=== PATIENT | female | born 1980 | race Caucasian/White ===

== ENCOUNTER 2016-12-09 16:58 | Emergency (ER) | payer OTHER ==
[2016-12-09 17:17] VITALS: BP 125/78; PULSE 82; TEMP 98.8; BMI 38.9
[2016-12-09] MEDS ORDERED: diazePAM 5 MG TABLET PO ONE (19:14)
[2016-12-09] MEDS ORDERED: KETOROLAC TROMETHAMINE 60 MG/2 ML VIAL IM ONE (19:14)
[2016-12-09 19:44] LABS: URINE APPEARANCE CLEAR; URINE BILIRUBIN NEGATIVE (NEGATIVE); URINE BLOOD NEGATIVE (NEGATIVE); URINE COLOR LTYELLOW; URINE GLUCOSE (UA) NEGATIVE (NEGATIVE); URINE KETONE NEGATIVE (NEGATIVE); URINE LEUK ESTERASE NEGATIVE (NEGATIVE); URINE NITRITE NEGATIVE (NEGATIVE); URINE PROTEIN NEGATIVE (NEGATIVE); URINE UROBILINOGEN NEGATIVE E.U./dl (0.2-1.0)
[2016-12-09] MEDS ORDERED: KETOROLAC TROMETHAMINE 60 MG/2 ML VIAL ONE (19:54)
[2016-12-09] MEDS ORDERED: diazePAM 5 MG TABLET ONE (19:55)
--- NOTE | 2016-12-09 20:49 | PDOC ---
History of Present Illness - General Chief Complaint: Pain Stated Complaint: BACK PAIN Time Seen by Provider: 12/09/16 19:05 History Source: Patient Exam Limitations: No Limitations - History of Present Illness Initial Comments: 12/09/16 20:44 CC right lower back pain x 10 days; long hx of the same Occurred: reports: last week Severity: reports: mild Pain Location: reports: back Past History - Past Medical History Allergies/Adverse Reactions: Allergies Allergy/AdvReac Type Severity Reaction Status Date / Time Penicillins Allergy Verified 12/09/16 17:17 Home Medications: Ambulatory Orders Cyclobenzaprine HCl [Flexeril -] 5 mg PO TID #21 tablet 02/24/16 Suicide Attempt (Hx): No - Surgical History Abdominal Surgery: Yes (GASTRIC SLEEVE 2012) Appendectomy: Yes (2012) - Reproductive History Cervical CA: No Dysfunctional Uterine Bleeding: No Ectopic : No Endometrial CA: No Polycystic Ovaries: No Tubal Ligation: No - Immunization History Immunization Up to Date: Yes - Psycho/Social/Smoking Cessation Hx Anxiety: No Suicidal Ideation: No Smoking History: Never smoked Have you smoked in the past 12 months: Yes Number of Cigarettes Smoked Daily: 10 Information on smoking cessation initiated: No 'Breaking Loose' booklet given: 06/08/14 Hx Alcohol Use: No Drug/Substance Use Hx: No Substance Use Type: None Trauma Specific PMHX - Complaint Specific PMHX Arthritis: No Back Injury: No Neck Injury: No Hx Sacro Iliac Joint Dysfunction: No Review of Systems - Review of Systems Constitutional: No: Chills, Fever, Malaise HEENTM: No: Symptoms Reported Respiratory: No: Symptoms reported, Cough Cardiac (ROS): No: Symptoms Reported ABD/GI: No: Symptoms Reported : No: Symptoms Reported, Burning, Dysuria, Discharge, Hematuria, Incontinence Musculoskeletal: Yes: Back Pain. No: Neck Pain Integumentary: No: Bruising *Physical Exam - Vital Signs Last Vital Signs Temp Pulse Resp BP Pulse Ox 98.8 F 82 18 125/78 99 12/09/16 17:15 12/09/16 17:15 12/09/16 17:15 12/09/16 17:15 12/09/16 17:15 - Physical Exam General Appearance: Yes: Appropriately Dressed. No: Apparent Distress HEENT: negative: TMs Normal, Pharynx Normal Neck: negative: Rigid, Tender lateral, Tender midline Respiratory/Chest: positive: Lungs Clear. negative: Chest Tender Gastrointestinal/Abdominal: positive: Normal Bowel Sounds, Soft. negative: Tender, Organomegaly, Pulsatile Mass Rectal Exam: positive: deferred Musculoskeletal: positive: Other (tender right posterior flank) ED Treatment Course - ADDITIONAL ORDERS Additional order review: Laboratory Results 12/09/16 19:30 Urine Color Ltyellow Urine Appearance Clear Urine pH 5.0 D Ur Specific Kountze 1.027 Urine Protein Negative Urine Glucose (UA) Negative Urine Ketones Negative Urine Blood Negative Urine Nitrite Negative Urine Bilirubin Negative Urine Urobilinogen Negative Ur Leukocyte Esterase Negative Urine HCG, Qual Negative - Medications Given in the ED: ED Medications Discontinued Medications Generic Name Dose Route Start Last Admin Trade Name Andrzejq PRN Reason Stop Dose Admin Diazepam 5 mg 12/09/16 19:14 12/09/16 20:05 Valium - PO 12/09/16 19:15 5 mg ONCE ONE Administration Ketorolac Tromethamine 60 mg 12/09/16 19:14 12/09/16 20:05 Toradol Injection - IM 12/09/16 19:15 60 mg ONCE ONE Administration Medical Decision Making - Medical Decision Making 12/09/16 20:46 tender to area of right flank; ua, U preg negative; feeling much better post valium and toradol *DC/Admit/Observation/Transfer Diagnosis at time of Disposition: Back pain Qualifiers: Back pain location: low back pain Chronicity: acute Back pain laterality: right Sciatica presence: unspecified whether sciatica present Qualified Code(s) : M54.5 - Low back pain - Discharge Dispostion Disposition: HOME Condition at time of disposition: Stable Admit: No - Patient Instructions Additional Instructions: please see local MD next week; continue meds used at home - Post Discharge Activity Work/School Note: Back to Work
== END 2016-12-09 21:01 | disposition home or self-care (01) ==
LOC: JERFT 16:58
PROC: 3E0233Z Introduction of Anti-inflammatory into Muscle, Percutaneous Approach (ICD-10-PCS; principal; 2016-12-09)
DX: M54.5 Low back pain (principal)
CPT/HCPCS: 81003; 84703; 99281-25

== ENCOUNTER 2017-02-28 00:52 | Emergency (ER) | payer OTHER ==
[2017-02-28 01:17] VITALS: BP 108/74; PULSE 71; TEMP 98.1; BMI 38.0
--- NOTE | 2017-02-28 01:41 | PDOC ---
History of Present Illness - General Chief Complaint: Pain Stated Complaint: BACK PAIN Time Seen by Provider: 02/28/17 01:04 History Source: Patient Exam Limitations: No Limitations - History of Present Illness Initial Comments: CHIEF COMPLAINT: 36 y/o afebrile female with PMH chronic back pain and anxiety c/o back pain. HISTORY OF PRESENT ILLNESS: Pt states she was standing in an awkward position yesterday while baking and has had worsened back pain ever since. She took tylenol and robaxin this evening with little relief. The patient admits the pain is worse with certain movements and feels like a pulling. She denies trauma to back, fall, f/c, n/v/d, cough, CP, SOB, abd pain, hematuria, dysuria, numbness/tingling in extremities. Vital signs on arrival are within normal limits. REVIEW OF SYSTEMS: GENERAL/CONSTITUTIONAL: No fever/chills. No weakness. No weight change. HEAD, EYES, EARS, NOSE AND THROAT: No change in vision. No ear pain or discharge. No sore throat. CARDIOVASCULAR: No chest pain or shortness of breath. RESPIRATORY: No cough, wheezing, or hemoptysis. GASTROINTESTINAL: No abd pain, nausea, vomiting, diarrhea. GENITOURINARY: No dysuria, frequency, or change in urination. MUSCULOSKELETAL: No joint or muscle swelling or pain. No neck pain. +back pain. SKIN: No rash or easy bruising. NEUROLOGIC: No headache, vertigo, loss of consciousness, or loss of sensation. PHYSICAL EXAM: GENERAL: The patient is awake, alert, and fully oriented, in no acute distress. She is morbidly obese and ambulatory with normal gait. HEAD: Normal with no signs of trauma. ENT: Pupils equal, round and reactive to light, extraocular movements intact, sclera anicteric, conjunctiva clear. Neck supple. LUNGS: Clear to auscultation bilaterally. Normal excursion. No respiratory distress or use of accessory muscles. CV: RRR, S1/S2, no MRG. Cap refill < 2 sec. ABDOMEN: Soft, non-distended, non-tender even to deep palpation, no hepatomegaly or splenomegaly, no masses. BACK: No midline thoracic or lumbar TTP, step offs or crepitus. Pain reproduced with palpation of right thoracic and lumbar paravertebral muscles, with worst pain at L1-L2 region. Full flexion, extension and lateral movements of lumbar spine. EXTREMITIES: Normal range of motion, no edema. NEUROLOGICAL: Normal speech, normal gait. CN II-XII grossly intact. PSYCH: Normal mood, normal affect. SKIN: Warm, dry, normal turgor, no rashes or lesions noted. Past History - Past Medical History Allergies/Adverse Reactions: Allergies Allergy/AdvReac Type Severity Reaction Status Date / Time Penicillins Allergy Verified 02/28/17 01:06 Home Medications: Ambulatory Orders NK [No Known Home Medication] 02/28/17 Psychiatric Problems: Yes (Anxiety) Suicide Attempt (Hx): No - Surgical History Abdominal Surgery: Yes (Gastric sleeve 2012) Appendectomy: Yes (2012) - Reproductive History Cervical CA: No Dysfunctional Uterine Bleeding: No Ectopic : No Endometrial CA: No Polycystic Ovaries: No Tubal Ligation: No - Immunization History Immunization Up to Date: Yes - Psycho/Social/Smoking Cessation Hx Anxiety: No Suicidal Ideation: No Smoking History: Never smoked Have you smoked in the past 12 months: No Number of Cigarettes Smoked Daily: 10 Information on smoking cessation initiated: No 'Breaking Loose' booklet given: 06/08/14 Hx Alcohol Use: No Drug/Substance Use Hx: No Substance Use Type: None Trauma Specific PMHX - Complaint Specific PMHX Arthritis: No Back Injury: No Neck Injury: No Hx Sacro Iliac Joint Dysfunction: No *Physical Exam - Vital Signs Last Vital Signs Temp Pulse Resp BP Pulse Ox 98.1 F 71 19 108/74 100 02/28/17 01:06 02/28/17 01:06 02/28/17 01:06 02/28/17 01:06 02/28/17 01:06 Medical Decision Making - Medical Decision Making A/P: 36 y/o female with musculoskeletal back pain. Plan is as follows: 1. hcg hcg - negative 2. IM toradol The patient states she feels much better after toradol and wants to go home. Will discharge to home with instructions to take Motrin and Robaxin at home 3 times per day for back pain, apply heating pad and stretch. Suggested she call her doctor in the morning and return to the ER with any worsening or concerning symptoms. The patient verbalizes understanding of all instructions, has no further questions and is awaiting discharge. *DC/Admit/Observation/Transfer Diagnosis at time of Disposition: Musculoskeletal back pain - Discharge Dispostion Disposition: HOME Condition at time of disposition: Improved - Referrals Referrals: Anika Woo MD [Primary Care Provider] - Call tomorrow - Patient Instructions Printed Discharge Instructions: DI for Low Back Pain, DI for Musculoskeletal Pain Additional Instructions: Discharge Instructions: -Take Motrin with Robaxin 3 times per day with food for back pain -Apply heating pad to the area -Call Dr. Woo in the morning to schedule follow up appointment -Return to the ER with any worsening or concerning symptoms
[2017-02-28] MEDS ORDERED: KETOROLAC TROMETHAMINE 60 MG/2 ML VIAL IM ONE (02:57)
[2017-02-28] MEDS ORDERED: KETOROLAC TROMETHAMINE 60 MG/2 ML VIAL ONE (03:09)
--- NOTE | 2017-02-28 04:13 | PDOC ---
*Physical Exam - Vital Signs Last Vital Signs Temp Pulse Resp BP Pulse Ox 98.1 F 71 19 108/74 100 02/28/17 01:06 02/28/17 01:06 02/28/17 01:06 02/28/17 01:06 02/28/17 01:06 ED Treatment Course - ADDITIONAL ORDERS Additional order review: Laboratory Results 02/28/17 02:27 Urine HCG, Qual Negative - Medications Given in the ED: ED Medications Discontinued Medications Generic Name Dose Route Start Last Admin Trade Name Chrissie PRN Reason Stop Dose Admin Ketorolac Tromethamine 60 mg 02/28/17 02:57 02/28/17 03:13 Toradol Injection - IM 02/28/17 02:58 60 mg ONCE ONE Administration Medical Decision Making - Medical Decision Making 02/28/17 04:13 agree with care from MOISE Edmond *DC/Admit/Observation/Transfer Diagnosis at time of Disposition: Musculoskeletal back pain - Discharge Dispostion Condition at time of disposition: Improved - Referrals Referrals: Anika Woo MD [Primary Care Provider] - Call tomorrow - Patient Instructions Printed Discharge Instructions: DI for Low Back Pain, DI for Musculoskeletal Pain Additional Instructions: Discharge Instructions: -Take Motrin with Robaxin 3 times per day with food for back pain -Apply heating pad to the area -Call Dr. Woo in the morning to schedule follow up appointment -Return to the ER with any worsening or concerning symptoms - Post Discharge Activity
== END 2017-02-28 07:00 | disposition home or self-care (01) ==
LOC: JER 00:52
PROC: 3E0233Z Introduction of Anti-inflammatory into Muscle, Percutaneous Approach (ICD-10-PCS; principal; 2017-02-28)
DX: M54.5 Low back pain (principal); G89.29 Other chronic pain; F41.9 Anxiety disorder, unspecified; X50.1XXA Overexertion from prolonged static or awkward postures, initial encounter; Y93.G3 Activity, cooking and baking; Y92.030 Kitchen in apartment as the place of occurrence of the external cause; Y99.8 Other external cause status
CPT/HCPCS: 84703; 99282-25

== ENCOUNTER 2017-04-13 13:51 | Emergency (ER) | payer OTHER ==
[2017-04-13 14:05] VITALS: BP 117/73; BMI 38.0
[2017-04-13] MEDS ORDERED: DEXAMETHASONE LIQUID 0.5 MG/5 ML 240 ML BULK BOTTLE PO ONE (14:37)
[2017-04-13] MEDS ORDERED: DEXAMETHASONE SOD PHOSPHATE 10 MG/1 ML VIAL ONE (14:38)
--- NOTE | 2017-04-13 14:49 | PDOC ---
History of Present Illness - General Chief Complaint: Sore Throat Stated Complaint: SORE THROAT Time Seen by Provider: 04/13/17 14:32 History Source: Patient Exam Limitations: No Limitations - History of Present Illness Initial Comments: 04/13/17 14:38 Patient is a 36-year-old female, no significant medical history currently on no medication woke up today with fever and sore throat and dysphagia. Denies any chest pain or shortness of breath. Past Medical History: Denies. Allergies: No known allergies Medications: None Family History: Non-contributory Social History: Denies smoking, alcohol use, or IVDU Review of Systems GENERAL/CONSTITUTIONAL: Fever. No weakness. No weight change. HEAD, EYES, EARS, NOSE AND THROAT: No change in vision. No ear pain or discharge. Sore Throat and dysphasia. CARDIOVASCULAR: No chest pain or shortness of breath. RESPIRATORY: No cough, wheezing, or hemoptysis. GASTROINTESTINAL: No nausea, vomiting, diarrhea or constipation. No rectal bleeding. GENITOURINARY: No dysuria, frequency, or change in urination. MUSCULOSKELETAL: No joint or muscle swelling or pain. No neck or back pain. SKIN AND BREASTS: No rash or easy bruising. NEUROLOGIC: No headache, vertigo, loss of consciousness, or loss of sensation. PSYCHIATRIC: No depression or anxiety. ENDOCRINE: No increased thirst. No abnormal weight change. HEMATOLOGIC/LYMPHATIC: No anemia, easy bleeding, or history of blood clots. ALLERGIC/IMMUNOLOGIC: No hives or skin allergy. No latex allergy. Physical Exam: GENERAL: The patient is awake, alert, and fully oriented, in no acute distress. EYES: Pupils equal, round and reactive to light, extraocular movements intact, sclera anicteric, conjunctiva clear. ENT: Ears normal, nares patent, bilateral tonsillar edema with exudates. Moist mucous membranes. No uvula deviation NECK: Normal range of motion, supple without lymphadenopathy, JVD, or masses. LUNGS: Breath sounds equal, clear to auscultation bilaterally. No wheezes, and no crackles. HEART: Regular rate and rhythm, normal S1 and S2 without murmur, rub or gallop. ABDOMEN: Soft, nontender, normoactive bowel sounds. No guarding, no rebound. No masses. No bruising or abrasions MUSCULOSKELETAL: Normal range of motion, no edema. No clubbing or cyanosis. No cords, erythema, or tenderness. No CVA Tenderness with fist. NEUROLOGICAL: Cranial nerves II through XII grossly intact. Normal speech, normal gait. SKIN: Warm, Dry, normal turgor, no rashes or lesions noted. Past History - Past Medical History Allergies/Adverse Reactions: Allergies Allergy/AdvReac Type Severity Reaction Status Date / Time Penicillins Allergy Verified 04/13/17 14:03 Home Medications: Ambulatory Orders Azithromycin [Zithromax 250mg Tablets -] 250 mg PO DAILY #4 tablet 04/13/17 Ibuprofen [Advil -] 400 mg PO QID 04/13/17 Ibuprofen [Motrin -] 600 mg PO QID #28 tablet 04/13/17 Psychiatric Problems: Yes (Anxiety) Suicide Attempt (Hx): No - Surgical History Abdominal Surgery: Yes (GASTRIC SLEEVE 2012) Appendectomy: Yes (2012) - Reproductive History Cervical CA: No Dysfunctional Uterine Bleeding: No Ectopic : No Endometrial CA: No Polycystic Ovaries: No Tubal Ligation: No - Immunization History Immunization Up to Date: Yes - Psycho/Social/Smoking Cessation Hx Anxiety: No Suicidal Ideation: No Smoking History: Never smoked Have you smoked in the past 12 months: No Number of Cigarettes Smoked Daily: 10 Information on smoking cessation initiated: No 'Breaking Loose' booklet given: 06/08/14 Hx Alcohol Use: No Drug/Substance Use Hx: No Substance Use Type: None *Physical Exam - Vital Signs Last Vital Signs Temp Pulse Resp BP Pulse Ox 100.0 F H 110 H 18 117/73 04/13/17 14:03 04/13/17 14:03 04/13/17 14:03 04/13/17 14:03 Medical Decision Making - Medical Decision Making 04/13/17 14:42 A/P: Patient here for evaluation of sore throat and fever, patient with clinical signs of bilateral tonsillitis, pharyngitis rapid strep sent. Patient states that she didn't feel good and walked out of the emergency department became diaphoretic and returned by security. Patient states she started to feel dizzy and wanted to get some air. Explained to patient that she cannot leave the emergency department she will be considered eloped. She verbalized understanding, will give: Decadron 10 mg by mouth. Toradol 30 mg Saline 1 L bolus saline lock. 04/13/17 14:51 Awaiting rapid strep 08/06/17 15:24 Patient with positive strep, will start patient on azithromycin allergy to penicillin first dose given in emergency department patient discharged on azithromycin 250 mg by mouth every day for 4 days. Recommend follow-up with PMD in 2 days if symptoms persist I discussed the physical exam findings, ancillary test results and final diagnoses with the patient. I answered all of the patient's questions. The patient was satisfied with the care received and felt comfortable with the discharge plan and treatment plan. The patient will call to arrange follow-up and will return to the Emergency Department with any new, persistent or worsening symptoms. 04/13/17 15:45 *DC/Admit/Observation/Transfer Diagnosis at time of Disposition: Strep pharyngitis - Discharge Dispostion Disposition: HOME Condition at time of disposition: Good Admit: No - Prescriptions Prescriptions: Ibuprofen [Motrin -] 600 mg PO QID #28 tablet Azithromycin [Zithromax 250mg Tablets -] 250 mg PO DAILY #4 tablet - Referrals Referrals: Anika Woo MD [Primary Care Provider] - - Patient Instructions Printed Discharge Instructions: DI for Pharyngitis/Tonsillopharyngitis -- Adult Additional Instructions: 1. Increase fluid. 2. Pedialyte or Gatorade. 3. Please change toothbrush within 3 days of starting antibiotics. 4. Warm saltwater gargles. 5. Please follow up with PMD in 3 days if symptoms not resolving. 6. Please return to the ER unable to drink or eat, increased fever or other concerns - Post Discharge Activity Work/School Note: Back to Work
[2017-04-13] MEDS ORDERED: SODIUM CHLORIDE 0.9% 1000 ML INFUS.BAG IV ONE (14:50)
[2017-04-13] MEDS ORDERED: KETOROLAC TROMETHAMINE 60 MG/2 ML VIAL IVPB ONE (14:50)
[2017-04-13] MEDS ORDERED: KETOROLAC TROMETHAMINE 30 MG/1 ML VIAL ONE (15:00)
[2017-04-13] MEDS ORDERED: AZITHROMYCIN 250 MG TABLET (FP) PO ONE (15:23)
[2017-04-13] MEDS ORDERED: AZITHROMYCIN 250 MG TABLET (FP) ONE (15:24)
[2017-04-13 16:19] VITALS: PULSE 95; TEMP 99.5
== END 2017-04-13 16:19 | disposition home or self-care (01) ==
LOC: JERFT 13:51 → JER 13:51 → JERFT 16:19
PROC: 3E0333Z Introduction of Anti-inflammatory into Peripheral Vein, Percutaneous Approach (ICD-10-PCS; principal; 2017-04-13)
PROC: 3E0337Z Introduction of Electrolytic and Water Balance Substance into Peripheral Vein, Percutaneous Approach (ICD-10-PCS; 2017-04-13)
DX: J02.0 Streptococcal pharyngitis (principal); F41.9 Anxiety disorder, unspecified; Z98.84 Bariatric surgery status; F17.210 Nicotine dependence, cigarettes, uncomplicated
CPT/HCPCS: 87070; 87077; 87430; 99281-25

== ENCOUNTER 2017-04-21 08:44 | Emergency (ER) | payer OTHER ==
[2017-04-21 08:51] VITALS: BP 115/70; PULSE 90; TEMP 98.6; BMI 40.3
[2017-04-21] MEDS ORDERED: BACITRACIN 15 GM TUBE TOPICAL OINTMENT TP ONE (09:30)
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
[2017-04-21] MEDS ORDERED: BACITRACIN 15 GM TUBE TOPICAL OINTMENT ONE (09:33)
== END 2017-04-21 09:48 | disposition home or self-care (01) ==
LOC: JERFT 08:44
DX: T21.11XA Burn of first degree of chest wall, initial encounter (principal); T31.0 Burns involving less than 10% of body surface; X17.XXXA Contact with hot engines, machinery and tools, initial encounter; Y93.89 Activity, other specified; Y92.9 Unspecified place or not applicable; F17.210 Nicotine dependence, cigarettes, uncomplicated; Z98.84 Bariatric surgery status
CPT/HCPCS: 99281-25

== ENCOUNTER 2017-08-30 13:52 | Emergency (ER) | payer OTHER ==
[2017-08-30 14:22] VITALS: BP 127/76; PULSE 80; TEMP 98.1; BMI 41.0
[2017-08-30] MEDS ORDERED: METOCLOPRAMIDE HCL 10 MG TABLET (FP) PO ONE (14:58)
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
[2017-08-30] MEDS ORDERED: METOCLOPRAMIDE HCL INJECTION 10 MG/2 ML VIAL ONE (15:10)
[2017-08-30] MEDS ORDERED: ACETAMINOPHEN 325 MG TABLET (FP) PO ONE (15:15)
[2017-08-30] MEDS ORDERED: ACETAMINOPHEN 325 MG TABLET (FP) ONE (15:24)
--- NOTE | 2017-08-30 15:47 | PDOC ---
History of Present Illness - General Chief Complaint: Lightheaded Stated Complaint: HEADACHE, HEAD CONTUSION X2 Time Seen by Provider: 08/30/17 14:27 History Source: Patient Exam Limitations: No Limitations - History of Present Illness Initial Comments: 08/30/17 15:36 The patient is a 36F with no PMH who presents to the ED with lightheadedness. The patient states that she hit her head on the door frame on Friday and then hit her head on her car door on Friday. She states that she has felt nauseous since Friday and has not been able to keep food down. She has vomited twice since. She denies any CP, SOB, changes in vision, numbness, tingling, or weakness. Past History - Past Medical History Allergies/Adverse Reactions: Allergies Allergy/AdvReac Type Severity Reaction Status Date / Time Penicillins Allergy Verified 08/30/17 14:21 Home Medications: Ambulatory Orders Hydrocortisone 1% Cream [Hytone 1% Cream -] 1 applic TP BID #1 tube 04/21/17 COPD: No Psychiatric Problems: Yes (Anxiety) - Surgical History Abdominal Surgery: Yes (GASTRIC SLEEVE 2012) Appendectomy: Yes (2012) - Reproductive History Cervical CA: No Dysfunctional Uterine Bleeding: No Ectopic : No Endometrial CA: No Polycystic Ovaries: No Tubal Ligation: No - Immunization History Immunization Up to Date: Yes - Suicide/Smoking/Psychosocial Hx Smoking History: Never smoked Have you smoked in the past 12 months: No Number of Cigarettes Smoked Daily: 0 Information on smoking cessation initiated: No 'Breaking Loose' booklet given: 06/08/14 Hx Alcohol Use: No Drug/Substance Use Hx: No Substance Use Type: None Review of Systems - Review of Systems Able to Perform ROS?: Yes Comments:: 08/30/17 15:47 GENERAL/CONSTITUTIONAL: No fever or chills. No weakness. HEAD, EYES, EARS, NOSE AND THROAT: Positive for head trauma x 2. No change in vision. No ear pain or discharge. No sore throat. GASTROINTESTINAL: Positive for nausea. No vomiting, diarrhea, constipation, or abdominal pain. GENITOURINARY: No dysuria, frequency, hematuria, or change in urination. CARDIOVASCULAR: No chest pain, palpitations, or lightheadedness. RESPIRATORY: No cough, wheezing, shortness of breath, or hemoptysis. MUSCULOSKELETAL: No joint or muscle swelling or pain. No neck or back pain. SKIN: No rash or lesions. NEUROLOGIC: No headache, numbness, tingling, weakness, loss of consciousness, or change in strength/sensation. ENDOCRINE: No increased thirst. No abnormal weight change. HEMATOLOGIC/LYMPHATIC: No anemia, easy bleeding, or history of blood clots. ALLERGIC/IMMUNOLOGIC: No hives or skin allergy. 08/30/17 15:47 Is the patient limited Luxembourger proficient: No *Physical Exam - Vital Signs Last Vital Signs Temp Pulse Resp BP Pulse Ox 98.1 F 80 18 127/76 99 08/30/17 14:19 08/30/17 14:19 08/30/17 14:19 08/30/17 14:19 08/30/17 14:19 - Physical Exam Comments: 08/30/17 15:48 GENERAL: Well developed, well nourished. Awake and alert. No acute distress. HEENT: Normocephalic, atraumatic. Hearing grossly normal. Moist mucous membranes. PERRLA, EOMI. NECK: Supple. Full ROM. No JVD. CARDIOVASCULAR: Regular rate and rhythm. No murmurs, rubs, or gallops. Distal pulses are 2+ and symmetric. PULMONARY: No evidence of respiratory distress. Lungs clear to auscultation bilaterally. No wheezing, rales or rhonchi. ABDOMINAL: Soft. Non-tender. Non-distended. No rebound or guarding. No organomegaly. Normoactive bowel sounds. GENITOURINARY: No CVA tenderness bilaterally. MUSCULOSKELETAL: Normal range of motion at all joints. No bony deformities or tenderness. EXTREMITIES: No cyanosis. No clubbing. No edema. No calf tenderness. SKIN: Warm and dry. Normal capillary refill. No rashes. No jaundice. NEUROLOGICAL: Alert, awake, appropriate. Cranial nerves 2-12 intact. No deficits to light touch and temperature in face, upper extremities and lower extremities. No motor deficits in the in face, upper extremities and lower extremities. Normoreflexic in the upper and lower extremities. Normal speech. Abnormal gait. PSYCHIATRIC: Cooperative. Good eye contact. Appropriate mood and affect. ED Treatment Course - RADIOLOGY Radiology Studies Ordered: Category Date Time Status HEAD CT WITHOUT CONTRAST [CT] Stat CT Scan 08/30/17 14:59 Ordered - Medications Given in the ED: ED Medications Discontinued Medications Generic Name Dose Route Start Last Admin Trade Name Chrissie PRN Reason Stop Dose Admin Acetaminophen 975 mg 08/30/17 15:15 08/30/17 15:23 Tylenol - PO 08/30/17 15:16 975 mg ONCE ONE Administration Metoclopramide HCl 10 mg 08/30/17 14:58 08/30/17 15:03 Reglan - PO 08/30/17 14:59 10 mg ONCE ONE Administration Medical Decision Making - Medical Decision Making 08/30/17 15:49 The patient is a 36F with no PMH who presents to the ED complaining of lightheadedness and nausea after 2 injuries to her head. CT head pending. Upreg negative. Patient was given reglan and fluids and states she feels better. Will reassess when CT is read. 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 Patient informed and is ready for d /c. *DC/Admit/Observation/Transfer Diagnosis at time of Disposition: Lightheaded - Discharge Dispostion Disposition: HOME Condition at time of disposition: Stable Admit: No - Referrals Referrals: Anika Woo MD [Primary Care Provider] - - Patient Instructions Printed Discharge Instructions: DI for Concussion Additional Instructions: Please return to the ER if symptoms persist, worsen, or new symptoms arise. Please follow up with your primary care physician in 2-3 days. Please return to the ER if you have any signs or symptoms of chest pain, shortness of breath, uncontrollable fever, chills, nausea, vomiting, numbness, tingling, or weakness in any part of your body, changes in vision, or slurred speech. - Post Discharge Activity
[2017-08-30 18:58] LABS: URINE APPEARANCE CLOUDY; URINE BILIRUBIN NEGATIVE (NEGATIVE); URINE BLOOD NEGATIVE (NEGATIVE); URINE COLOR YELLOW; URINE GLUCOSE (UA) NEGATIVE (NEGATIVE); URINE KETONE NEGATIVE (NEGATIVE); URINE LEUK ESTERASE NEGATIVE (NEGATIVE); URINE NITRITE NEGATIVE (NEGATIVE); URINE PROTEIN NEGATIVE (NEGATIVE); URINE UROBILINOGEN NEGATIVE mg/dL (0.2-1.0)
[2017-08-30 22:49] LABS: URINE LEUK ESTERASE Negative (NEGATIVE)
== END 2017-08-30 19:10 | disposition home or self-care (01) ==
LOC: JER 13:52
DX: S09.8XXA Other specified injuries of head, initial encounter (principal); W22.8XXA Striking against or struck by other objects, initial encounter; Y93.89 Activity, other specified; Y92.89 Other specified places as the place of occurrence of the external cause; Y99.8 Other external cause status
CPT/HCPCS: 70450-TC; 81003; 84703; 99281-25

== ENCOUNTER 2018-10-10 12:26 | Emergency (ER) | payer OTHER ==
[2018-10-10 12:36] VITALS: BP 133/81; PULSE 89; TEMP 99.1; BMI 33.5
--- NOTE | 2018-10-10 13:04 | PDOC ---
History of Present Illness - General Chief Complaint: Urinary Problem Stated Complaint: PAIN Time Seen by Provider: 10/10/18 12:55 History Source: Patient Exam Limitations: No Limitations Past History - Past Medical History Allergies/Adverse Reactions: Allergies Allergy/AdvReac Type Severity Reaction Status Date / Time Penicillins Allergy Verified 10/10/18 12:32 Home Medications: Ambulatory Orders Multivitamin [Multiple Vitamins] 1 each PO DAILY 10/10/18 Nitrofurantoin Monohyd/M-Cryst [Macrobid -] 100 mg PO BID #14 capsule 10/10/18 COPD: No Psychiatric Problems: Yes (Anxiety) - Surgical History Abdominal Surgery: Yes (GASTRIC SLEEVE 2012) Appendectomy: Yes (2012) - Reproductive History Cervical CA: No Dysfunctional Uterine Bleeding: No Ectopic : No Endometrial CA: No Polycystic Ovaries: No Tubal Ligation: No - Immunization History Immunization Up to Date: Yes - Suicide/Smoking/Psychosocial Hx Smoking History: Never smoked Have you smoked in the past 12 months: No Number of Cigarettes Smoked Daily: 0 'Breaking Loose' booklet given: 06/08/14 Hx Alcohol Use: No Drug/Substance Use Hx: No Substance Use Type: None *Physical Exam - Vital Signs Last Vital Signs Temp Pulse Resp BP Pulse Ox 99.1 F 89 18 133/81 99 10/10/18 12:35 10/10/18 12:35 10/10/18 12:35 10/10/18 12:35 10/10/18 12:35 Moderate Sedation - Procedure Monitoring Vital Signs: Procedure Monitoring Vital Signs Temperature 99.1 F 10/10/18 12:35 Pulse Rate 89 10/10/18 12:35 Respiratory Rate 18 10/10/18 12:35 Blood Pressure 133/81 10/10/18 12:35 O2 Sat by Pulse Oximetry (%) 99 10/10/18 12:35 Medical Decision Making - Medical Decision Making 37 y/o F with no sig pmh presents with urinary urgency, increased frequency and dysuria since 4 days ago. Denies fever, chills, sob, cp, abd pain, n/v, hematuria, unusual vaginal discharge. Probable UTI UA, UCx, UCG sent from triage 10/10/18 13:04 UA not significantly positive - 1+ leuks and few pyuria Given patient symptomatic, will treat 10/10/18 13:39 *DC/Admit/Observation/Transfer Diagnosis at time of Disposition: UTI (urinary tract infection) Qualifiers: Urinary tract infection type: acute cystitis Hematuria presence: without hematuria Qualified Code(s): N30.00 - Acute cystitis without hematuria - Discharge Dispostion Disposition: HOME Condition at time of disposition: Stable Decision to Admit order: No - Prescriptions Prescriptions: Nitrofurantoin Monohyd/M-Cryst [Macrobid -] 100 mg PO BID #14 capsule - Referrals Referrals: Anika Woo MD [Primary Care Provider] - 3 days - Patient Instructions Printed Discharge Instructions: DI for Urinary Tract Infection (UTI) Additional Instructions: Thank you for choosing [facility]. It was a pleasure taking care of you. You were started on an antibiotic, Macrobid, for urine infection Avoid drinking alcohol while taking this medication Drink at least 2 L of water daily. Return to the Emergency Department if your symptoms worsen or persist or other concerning symptoms. - Post Discharge Activity
[2018-10-10 13:11] LABS: HCG,QUALITATIVE URINE Negative
[2018-10-10 13:20] LABS: URINE APPEARANCE SLCLOUDY; URINE BILIRUBIN NEGATIVE (<2.0 mg/dL); URINE COLOR YELLOW; URINE GLUCOSE (UA) NEGATIVE (NEGATIVE); URINE KETONE NEGATIVE (NEGATIVE); URINE LEUK ESTERASE 1+ (NEGATIVE); URINE NITRITE NEGATIVE (NEGATIVE); URINE PROTEIN 1+ (NEGATIVE)
[2018-10-10 13:28] LABS: EPI CELLS MODERATE /HPF (FEW); URINE BACTERIA RARE /hpf (NONE SEEN)
[2018-10-10] MEDS ORDERED: NITROFURANTOIN MACROCRYSTAL 50 MG CAPSULE (FP) PO SCH (13:45)
[2018-10-10] MEDS ORDERED: NITROFURANTOIN MACROCRYSTAL 50 MG CAPSULE (FP) ONE (13:48)
== END 2018-10-10 13:55 | disposition home or self-care (01) ==
LOC: JERFT 12:26
DX: N30.00 Acute cystitis without hematuria (principal); B96.20 Unspecified Escherichia coli [E. coli] as the cause of diseases classified elsewhere
CPT/HCPCS: 81003; 81015; 84703; 87086; 87186; 99281-25

== ENCOUNTER 2018-11-22 12:18 | Emergency (ER) | payer OTHER ==
[2018-11-22 12:25] VITALS: BP 130/76; PULSE 88; TEMP 98.9; BMI 41.0
--- NOTE | 2018-11-22 12:43 | PDOC ---
History of Present Illness - General Chief Complaint: Redness To Affected Area Stated Complaint: RT LEG POSSIBLE INFECTION Time Seen by Provider: 11/22/18 12:28 History Source: Patient Exam Limitations: No Limitations (R lower leg redness and swelling X 3wks) - History of Present Illness Location: reports: extremities Associated Symptoms: reports: edema. denies: fever Past History - Travel Traveled outside of the country in the last 30 days: No Close contact w/someone who was outside of country & ill: No - Past Medical History Allergies/Adverse Reactions: Allergies Allergy/AdvReac Type Severity Reaction Status Date / Time Penicillins Allergy Verified 11/22/18 12:25 Home Medications: Ambulatory Orders Clindamycin [Cleocin -] 300 mg PO Q6HPO #28 capsule 11/22/18 Cyclobenzaprine HCl [Flexeril -] 10 mg PO TID 11/22/18 Ibuprofen [Advil -] 200 mg PO QID 11/22/18 COPD: No Psychiatric Problems: Yes (Anxiety) - Surgical History Abdominal Surgery: Yes (GASTRIC SLEEVE 2012) Appendectomy: Yes (2012) - Reproductive History Cervical CA: No Dysfunctional Uterine Bleeding: No Ectopic : No Endometrial CA: No Polycystic Ovaries: No Tubal Ligation: No - Immunization History Immunization Up to Date: Yes - Suicide/Smoking/Psychosocial Hx Smoking History: Never smoked Have you smoked in the past 12 months: No Number of Cigarettes Smoked Daily: 0 'Breaking Loose' booklet given: 06/08/14 Hx Alcohol Use: No Drug/Substance Use Hx: No Substance Use Type: None Review of Systems - Review of Systems Constitutional: No: Chills, Fever Musculoskeletal: Yes: Other (R lower leg redness--lateral aspect) Integumentary: Yes: Erythema. No: Pruritus, Rash *Physical Exam - Vital Signs Last Vital Signs Temp Pulse Resp BP Pulse Ox 98.9 F 88 18 130/76 99 11/22/18 12:21 11/22/18 12:21 11/22/18 12:21 11/22/18 12:21 11/22/18 12:21 - Physical Exam Respiratory/Chest: positive: Lungs Clear, Normal Breath Sounds Cardiovascular: positive: Regular Rhythm, Regular Rate, S1, S2 Extremity: positive: Swelling, Erythema, Other (R lateral lower lecm area of swelling with warmth). negative: Calf Tenderness Integumentary: positive: Erythema Neurologic: positive: campus rep II-XII NML intact, Fully Oriented, Alert (R lower leg : lateral leg swelling with warmth about 5cm in dimension, + ankle edema. neg homans sign) Moderate Sedation - Procedure Monitoring Vital Signs: Procedure Monitoring Vital Signs Temperature 98.9 F 11/22/18 12:21 Pulse Rate 88 11/22/18 12:21 Respiratory Rate 18 11/22/18 12:21 Blood Pressure 130/76 11/22/18 12:21 O2 Sat by Pulse Oximetry (%) 99 11/22/18 12:21 ED Treatment Course - RADIOLOGY Radiology Studies Ordered: Category Date Time Status DUPLEX VASCUL US-1 LEG [US] Stat Ultrasound 11/22/18 12:35 Ordered Medical Decision Making - Medical Decision Making 11/22/18 13:55 37y/o F with redness and lower leg swelling X 3wks, denies trauma, f/c or SOB, last tetanus >10yrs ago pt was seen by vascular doctor who recommended she come to ER to r/o DVT exam with superficial cellulites duplex ordered, neg for DVT Rx for clindamycin sent to pharmacy with return instructions area marked *DC/Admit/Observation/Transfer Diagnosis at time of Disposition: Cellulitis Qualifiers: Site of cellulitis: extremity Site of cellulitis of extremity: lower extremity Laterality: right Qualified Code(s): L03.115 - Cellulitis of right lower limb - Discharge Dispostion Disposition: HOME Condition at time of disposition: Stable Decision to Admit order: No - Prescriptions Prescriptions: Clindamycin [Cleocin -] 300 mg PO Q6HPO #28 capsule - Referrals Referrals: Anika Woo MD [Primary Care Provider] - - Patient Instructions Printed Discharge Instructions: DI for Cellulitis -- Adult Additional Instructions: Your sonogram for the leg was negative for blood clot today please take antibiotics as prescribed for leg infection return to the ER for wound check in 2-3 days Please return sooner if worsening redness above marked area, fever, chills - Post Discharge Activity
[2018-11-22] MEDS ORDERED: DIPHTH,PERTUSS(ACELL),TET 0.5 ML DISP.SYRIN IM ONE ×2 (13:54→14:03)
== END 2018-11-22 14:07 | disposition home or self-care (01) ==
LOC: JERFT 12:18
PROC: 3E0234Z Introduction of Serum, Toxoid and Vaccine into Muscle, Percutaneous Approach (ICD-10-PCS; principal; 2018-11-22)
DX: L03.115 Cellulitis of right lower limb (principal); F41.9 Anxiety disorder, unspecified; Z98.84 Bariatric surgery status
CPT/HCPCS: 90471; 90715; 93971-TC; 99281-25

== ENCOUNTER 2020-05-08 07:29 | Day surgery (SDC) | payer OTHER ==
[2020-05-01 18:11] VITALS: BMI 42.5
[2020-05-08] MEDS ORDERED: PROPOFOL 20 ML ONE ×2 (07:34)
[2020-05-08] MEDS ORDERED: LIDOCAINE HCL/PF 2% SDV 5ML VIAL ONE (07:34)
[2020-05-08 08:57] VITALS: TEMP 98.2
[2020-05-08 09:17] VITALS: BP 122/76; PULSE 78
--- NOTE | 2020-05-09 15:35 | PATH ---
Surgical Pathology Report Patient Name: DIMA DORSEY [facility]. Rec. #: [id number] /Age/Gender: 1980 (Age: 39) / F Account: [id number] Location: [facility] Taken: 05/08/2020 Received: 05/08/2020 Reported: 05/09/2020 Physicians: Deondre Dave M.D. Specimen(s) Received A: BIOPSY SECOND PORTION DUODENUM B: BIOPSY GASTRIC ANTRUM Clinical History GERD Postoperative diagnosis: Hiatal hernia status post gastric sleeve Final Diagnosis A. DUODENUM, SECOND PORTION, BIOPSY: DUODENAL MUCOSA WITHOUT SIGNIFICANT PATHOLOGIC FINDINGS. B. GASTRIC ANTRUM, BIOPSY: GASTRIC ANTRAL MUCOSA WITH MILD CHRONIC GASTRITIS. IMMUNOHISTOCHEMICAL STAIN FOR H. PYLORI IS NEGATIVE. Positive and negative controls (internal if applicable) show appropriate results. Electronically Signed Azra Garcia M.D. Gross Description A. Received in formalin, labeled "biopsy second portion of duodenum" is a ba, irregular portion of soft tissue measuring 0.3 cm. in greatest dimension. The specimen is submitted in toto in one cassette. B. Received in formalin, labeled "biopsy gastric antrum" is a ba, irregular portion of soft tissue measuring 0.3 cm. in greatest dimension. The specimen is submitted in toto in one cassette. 05/08/2020 [facility]05/08/2020
== END 2020-05-08 09:18 | disposition home or self-care (01) ==
LOC: FASU-ENDO 07:29
PROVIDERS: ATTEND Internal Medicine Gastroenterology
PROC: 0DB68ZX Excision of Stomach, Via Natural or Artificial Opening Endoscopic, Diagnostic (ICD-10-PCS; 2020-05-08)
PROC: 0DB98ZX Excision of Duodenum, Via Natural or Artificial Opening Endoscopic, Diagnostic (ICD-10-PCS; principal; 2020-05-08 08:38)
DX: Z01.818 Encounter for other preprocedural examination (principal); K29.50 Unspecified chronic gastritis without bleeding; K44.9 Diaphragmatic hernia without obstruction or gangrene; Z98.84 Bariatric surgery status; R12 Heartburn
CPT/HCPCS: 81025; 88305-TC; 88342-TC

== ENCOUNTER 2021-07-11 22:46 | Emergency (ER) | payer OTHER ==
[2021-07-11 22:53] VITALS: BP 124/82; PULSE 90; TEMP 97.7; BMI 41.6
[2021-07-12] MEDS ORDERED: DIPHTH,PERTUSS(ACELL),TET 0.5 ML DISP.SYRIN IM ONE (00:31)
== END 2021-07-12 01:46 | disposition home or self-care (01) ==
LOC: JER 22:46
PROC: 0JQ10ZZ Repair Face Subcutaneous Tissue and Fascia, Open Approach (ICD-10-PCS; principal; 2021-07-11)
PROC: 3E0234Z Introduction of Serum, Toxoid and Vaccine into Muscle, Percutaneous Approach (ICD-10-PCS; 2021-07-11)
DX: S01.81XA Laceration without foreign body of other part of head, initial encounter (principal); W22.8XXA Striking against or struck by other objects, initial encounter; Y92.9 Unspecified place or not applicable
CPT/HCPCS: 12001-25; 90471; 99284-25

== ENCOUNTER 2021-07-19 17:45 | Emergency (ER) | payer OTHER ==
[2021-07-19 17:58] VITALS: BP 124/85; PULSE 87; TEMP 97.9; BMI 41.5
== END 2021-07-19 18:33 | disposition home or self-care (01) ==
LOC: JER 17:45
DX: Z48.02 Encounter for removal of sutures (principal)
CPT/HCPCS: 99281-25

== ENCOUNTER 2021-07-25 18:11 | Emergency (ER) | payer OTHER ==
[2021-07-25 18:29] VITALS: TEMP 99.7; BMI 41.5
[2021-07-25] MEDS ORDERED: MAG HYDROX/AL HYDROX/SIMETH 30 ML UNIT-DOSE CUP PO ONE (19:01)
[2021-07-25] MEDS ORDERED: ACETAMINOPHEN 325 MG TABLET (FP) PO ONE (19:01)
[2021-07-25] MEDS ORDERED: FAMOTIDINE 10 MG TABLET PO ONE (19:01)
[2021-07-25] MEDS ORDERED: SUCRALFATE 1 GM TABLET (FP) PO ONE (19:01)
[2021-07-25] MEDS ORDERED: ACETAMINOPHEN 1000 MG/100 ML VIAL IVPB ONE (19:07)
[2021-07-25] MEDS ORDERED: FAMOTIDINE 10 MG TABLET ONE (19:39)
[2021-07-25] MEDS ORDERED: MAG HYDROX/AL HYDROX/SIMETH 30 ML UNIT-DOSE CUP ONE (19:40)
[2021-07-25] MEDS ORDERED: ACETAMINOPHEN INJECTION 100 ML IVPB ONE (19:40)
[2021-07-25] MEDS ORDERED: SUCRALFATE 1 GM TABLET (FP) ONE (19:40)
[2021-07-25 20:24] LABS: BASO % 0.3 % (0-2.0); EOS % 0.5 % (0-4.5); HEMATOCRIT 32.4 % (32.4-45.2); HEMOGLOBIN 10.4 GM/dL (10.7-15.3); LYMPH % 13.5 % (8-40); MCH 25.6 pg (25.7-33.7); MCHC 32.2 g/dl (32.0-36.0); MEAN CELL VOLUME 79.4 fl (80-96); MEAN PLT VOLUME 8.9 fl (7.5-11.1); MONO % 7.2 % (3.8-10.2); NEUT % 78.5 % (42.8-82.8); PLATELET COUNT 303 10^3/uL (134-434); RBC 4.08 M/mm3 (3.60-5.2); RDW 15.3 % (11.6-15.6); WHITE BLOOD COUNT 9.8 K/mm3 (4.0-10.0)
[2021-07-25 20:47] LABS: PH,URINE 5.5 (5.0-8.0); URINE APPEARANCE CLEAR; URINE BILIRUBIN NEGATIVE (NEGATIVE); URINE COLOR YELLOW; URINE GLUCOSE (UA) NEGATIVE (NEGATIVE); URINE KETONE NEGATIVE (NEGATIVE); URINE LEUK ESTERASE NEGATIVE (NEGATIVE); URINE NITRITE NEGATIVE (NEGATIVE); URINE PROTEIN TRACE (NEGATIVE); URINE UROBILINOGEN 0.2 mg/dL (0.2-1.0)
[2021-07-25 21:00] LABS: ALBUMIN 3.2 g/dl (3.4-5.0); BLOOD UREA NITROGEN 11.1 mg/dL (7-18); CALCIUM 8.7 mg/dL (8.5-10.1)
[2021-07-25 21:03] LABS: CREATININE 0.6 mg/dL (0.55-1.3)
[2021-07-25 21:04] LABS: TOT PROT 7.4 g/dl (6.4-8.2)
[2021-07-25 21:05] LABS: BILIRUBIN,TOTAL 0.2 mg/dL (0.2-1)
[2021-07-25] MEDS ORDERED: metroNIDAZOLE 500 MG TABLET PO ONE (23:27)
[2021-07-25] MEDS ORDERED: metroNIDAZOLE 250 MG TABLET ONE (23:38)
[2021-07-25 23:55] VITALS: BP 126/92; PULSE 87
== END 2021-07-25 23:55 | disposition home or self-care (01) ==
LOC: JER 18:11
PROC: 3E0333Z Introduction of Anti-inflammatory into Peripheral Vein, Percutaneous Approach (ICD-10-PCS; principal; 2021-07-25)
DX: K51.90 Ulcerative colitis, unspecified, without complications (principal); R10.9 Unspecified abdominal pain
CPT/HCPCS: 36415; 74177-TC; 76830-TC; 80053; 81003; 83690; 84703; 85025; 87086; 99285-25; C9803; J0131; Q9967; U0003; U0005

== ENCOUNTER 2022-09-24 10:07 | Emergency (ER) | payer OTHER ==
[2022-09-24 10:24] VITALS: BP 138/77; PULSE 100; RESP 20; TEMP 97.9; BMI 43.2
== END 2022-09-24 12:09 | disposition home or self-care (01) ==
LOC: JERFT 10:07 → JER 10:07 → JERFT 12:09
DX: B30.9 Viral conjunctivitis, unspecified (principal)
CPT/HCPCS: 99283-25